=== PATIENT | female | born 1985 | race African-American/Black ===

== ENCOUNTER 2017-03-31 02:38 | Emergency (ER) | payer MEDICAID ==
[~2017-03-31] VITALS: Ht 157.5 cm; Wt 69.0 kg
[2017-03-31] MEDS ORDERED: IBUPROFEN 600MG TABLET PO ONE (06:45)
[2017-03-31 06:47] VITALS: BP 132/67
== END 2017-03-31 08:04 | disposition home or self-care (01) ==
LOC: ER 02:38
DX: S83.92XA Sprain of unspecified site of left knee, initial encounter (principal); J45.909 Unspecified asthma, uncomplicated; F17.200 Nicotine dependence, unspecified, uncomplicated; F12.10 Cannabis abuse, uncomplicated; Z88.5 Allergy status to narcotic agent; W13.2XXA Fall from, out of or through roof, initial encounter; Y93.89 Activity, other specified; Y92.89 Other specified places as the place of occurrence of the external cause; Y99.8 Other external cause status
CPT/HCPCS: 73562; 81025; 99284

== ENCOUNTER 2018-04-16 20:04 | Emergency (ER) | payer MEDICAID ==
[~2018-04-16] VITALS: Ht 157.5 cm; Wt 63.4 kg
[2018-04-17] MEDS ORDERED: IBUPROFEN 800MG TABLET PO ONE (00:15)
[2018-04-17 02:02] VITALS: BP 121/44
== END 2018-04-17 02:01 | disposition home or self-care (01) ==
LOC: ER 20:04
DX: S93.401A Sprain of unspecified ligament of right ankle, initial encounter (principal); S93.601A Unspecified sprain of right foot, initial encounter; F17.200 Nicotine dependence, unspecified, uncomplicated; Z88.5 Allergy status to narcotic agent; X50.1XXA Overexertion from prolonged static or awkward postures, initial encounter; Y93.89 Activity, other specified; Y92.89 Other specified places as the place of occurrence of the external cause; Y99.8 Other external cause status
CPT/HCPCS: 73610; 73630; 99283

== ENCOUNTER 2018-06-29 17:17 | Emergency (ER) | payer MEDICAID ==
[~2018-06-29] VITALS: Ht 157.5 cm; Wt 64.0 kg
[2018-06-29] MEDS ORDERED: IBUPROFEN 800MG TABLET PO ONE (19:30)
[2018-06-29 19:56] LABS: CHLORIDE 104 mEq/L (98-107)
[2018-06-29 19:59] LABS: BASOPHILS % 0.2 % (0.0-2.0); HEMATOCRIT. 36.6 % (36.0-48.0); LYMPHOCYTES % 18.3 % (20.0-50.0); MEAN CORPUSCULAR HEMOGLOBIN 27.8 pg (28.0-32.0); MEAN CORPUSCULAR VOLUME 84.7 fL (81.0-99.0); MEAN PLATELET VOLUME 8.5 fl (7.4-10.4); MONOCYTES % 12.6 % (2.0-8.0); NEUTROPHILS % 67.9 % (40.0-76.0); PLATELET 321 x1000/uL (130-400); RED BLOOD CELL COUNT 4.33 mill/uL (4.2-5.4); RED CELL DISTRIBUTION WIDTH 14.1 % (11.6-14.6)
[2018-06-29] MEDS ORDERED: IOHEXOL-300 100 ML BOTTLE ONE (20:51)
[2018-06-29 22:15] VITALS: BP 115/67
== END 2018-06-29 22:16 | disposition home or self-care (01) ==
LOC: ER 17:17
DX: R22.0 Localized swelling, mass and lump, head (principal); F17.200 Nicotine dependence, unspecified, uncomplicated; Z88.6 Allergy status to analgesic agent
CPT/HCPCS: 36415; 70487; 80053; 81025; 85025; 99284; Q9967; Z7610

== ENCOUNTER 2021-11-14 03:07 | Emergency (ER) | payer MEDICAID | END 2021-11-14 04:02 | disposition left against medical advice (07) | LOC: ER 03:31 | DX: Z53.21 Procedure and treatment not carried out due to patient leaving prior to being seen by health care provider (principal) ==